=== PATIENT | female | born 1990 | race Caucasian/White ===

== ENCOUNTER 2016-08-22 14:46 | Emergency (ER) | payer OTHER ==
[~2016-08-22] VITALS: Ht 165.1 cm; Wt 57.7 kg
[2016-08-22 14:48] VITALS: BP 146/77; PULSE 103; RESP 24; TEMP 97.8; O2SAT 99
[2016-08-22 14:55] VITALS: BP 124/73; PULSE 90; RESP 20; O2SAT 98
[2016-08-22 15:05] VITALS: BP 124/73; PULSE 82; RESP 20; O2SAT 98
--- NOTE | 2016-08-22 15:11 | PD ---
HPI Chief Complaint: Chest Pain Time Seen by Provider: 15:05 Travel History International Travel<30 days: No Contact w/Intl Traveler<30days: No Traveled to known affect area: No History of Present Illness HPI 26-year-old female presents the emergency Department with 1 month history of intermittent chest pain which she describes as anterior and sharp intermittently. She denies fever, chills, nausea, vomiting, or diarrhea. Patient denies wheezing or productive cough. She has no upper respiratory symptoms patient does state a history of anxiety for which she was given buspirone several weeks ago without improvement. Patient states her pain does not seem to be worsening with exertion, but occasionally wakes her up at night in the past week. Nothing seems to make it better. Patient denies lower extremity edema or calf pain. Patient is on Depo-Provera, and due for her next shot on the . He does not have menstrual cycles due to this. Patient does state that she does have some urinary leakage in the last week. She denies vaginal symptoms or urinary burning. She is allergic to tramadol. PFSH Past Medical History ?: Not LMP: JULY 2016 Social History Alcohol Use: No Tobacco Use: No Substance Use: No Allergies-Medications (Allergen,Severity, Reaction): Coded Allergies: Tramadol (Verified Adverse Reaction, Severe, CHEST PAIN, 08/22/16) Reported Meds & Prescriptions Reported Meds & Active Scripts Active Vistaril (Hydroxyzine Pamoate) 50 Mg Cap 50 Mg PO QID PRN 30 Days Reported Risperdal (Risperidone) 1 Mg Tab 1 Mg PO HS Zoloft (Sertraline HCl) 100 Mg Tab 100 Mg PO HS Singulair (Montelukast Sodium) 10 Mg Tab 10 Mg PO DAILY Flonase Nasal Willis (Fluticasone Nasal Willis) 50 Mcg/Act Willis 1 Willis EACH NARE DAILY Buspirone (Buspirone HCl) 7.5 Mg Tab 7.5 Mg PO BID Medroxyprogesterone Inj 150 Mg/Ml Inj 150 Mg IM Q90D Aripiprazole 5 Mg Tab 5 Mg PO DAILY Review of Systems General / Constitutional: No: Fever Eyes: No: Visual changes HENT: No: Headaches Cardiovascular: Positive: Chest Pain or Discomfort Respiratory: No: Shortness of Breath Gastrointestinal: No: Abdominal Pain Genitourinary: No: Dysuria Musculoskeletal: No: Pain Skin: No Rash Neurologic: No: Weakness Psychiatric: No: Depression Endocrine: No: Polydipsia Hematologic/Lymphatic: No: Easy Bruising Physical Exam Narrative GENERAL: Patient appears mildly anxious but no acute distress otherwise. SKIN: Warm and dry. Normal color. Normal turgor. HEAD: Atraumatic. Normocephalic. EYES: Pupils equal and round. No scleral icterus. No injection or drainage. ENT: No nasal bleeding or discharge. Mucous membranes pink and moist. Pharynx is clear. NECK: Trachea midline. Neck is supple and nontender. CARDIOVASCULAR: Regular rate and rhythm. No murmurs gallops or rubs. RESPIRATORY: No accessory muscle use. Clear to auscultation. Breath sounds equal bilaterally. GASTROINTESTINAL: Abdomen soft, non-tender, nondistended. Hepatic and splenic margins not palpable. MUSCULOSKELETAL: Extremities without clubbing, cyanosis, or edema. No obvious deformities. NEUROLOGICAL: Awake and alert. No obvious cranial nerve deficits. Motor grossly within normal limits. Five out of 5 muscle strength in the arms and legs. Normal speech. PSYCHIATRIC: Appropriate mood and affect; insight and judgment normal. Data Data Last Documented VS Vital Signs Date Time Temp Pulse Resp B/P Pulse Ox O2 Delivery O2 Flow Rate FiO2 08/22/16 18:40 84 16 113/64 98 Room Air 08/22/16 14:48 97.8 Orders Ckmb (Isoenzyme) Profile (08/22/16 15:02) Complete Blood Count With Diff (08/22/16 15:02) Comprehensive Metabolic Panel (08/22/16 15:02) Magnesium (Mg) (08/22/16 15:02) Prothrombin Time / Inr (Pt) (08/22/16 15:02) Act Partial Throm Time (Ptt) (08/22/16 15:02) Troponin I (08/22/16 15:02) Ecg Monitoring (08/22/16 15:02) Bilateral Bp Monitoring (08/22/16 15:02) Iv Access Insert/Monitor (08/22/16 15:02) Oximetry (08/22/16 15:02) Oxygen Administration (08/22/16 15:02) Sodium Chloride 0.9% Flush (Ns Flush) (08/22/16 15:15) Ct Pulmonary Angiogram (08/22/16 15:02) Urinalysis - C+S If Indicated (08/22/16 15:02) Thyroid Stimulating Hormone (08/22/16 15:02) Ondansetron Inj (Zofran Inj) (08/22/16 17:00) Electrocardiogram (08/22/16 14:59) Iohexol 350 Inj (Omnipaque 350 Inj) (08/22/16 17:44) Labs Laboratory Tests Test 08/22/16 15:15 White Blood Count 12.6 TH/MM3 Red Blood Count 4.62 MIL/MM3 Hemoglobin 13.1 GM/DL Hematocrit 38.3 % Mean Corpuscular Volume 82.8 FL Mean Corpuscular Hemoglobin 28.4 PG Mean Corpuscular Hemoglobin 34.3 % Concent Red Cell Distribution Width 13.3 % Platelet Count 279 TH/MM3 Mean Platelet Volume 8.6 FL Neutrophils (%) (Auto) 58.3 % Lymphocytes (%) (Auto) 30.4 % Monocytes (%) (Auto) 10.1 % Eosinophils (%) (Auto) 0.8 % Basophils (%) (Auto) 0.4 % Neutrophils # (Auto) 7.3 TH/MM3 Lymphocytes # (Auto) 3.8 TH/MM3 Monocytes # (Auto) 1.3 TH/MM3 Eosinophils # (Auto) 0.1 TH/MM3 Basophils # (Auto) 0.0 TH/MM3 CBC Comment DIFF FINAL Differential Comment Prothrombin Time 11.3 SEC Prothromb Time International 1.0 RATIO Ratio Activated Partial 30.1 SEC Thromboplast Time Urine Color YELLOW Urine Turbidity CLEAR Urine pH 6.5 Urine Specific [place] 1.019 Urine Protein NEG mg/dL Urine Glucose (UA) NEG mg/dL Urine Ketones NEG mg/dL Urine Occult Blood TRACE Urine Nitrite NEG Urine Bilirubin NEG Urine Urobilinogen 2.0 MG/DL Urine Leukocyte Esterase NEG Urine RBC 1 /hpf Urine WBC 1 /hpf Urine Squamous Epithelial 1 /hpf Cells Urine Mucus FEW /lpf Microscopic Urinalysis Comment CULT NOT INDICATED Sodium Level 140 MEQ/L Potassium Level 3.9 MEQ/L Chloride Level 106 MEQ/L Carbon Dioxide Level 23.9 MEQ/L Anion Gap 10 MEQ/L Blood Urea Nitrogen 15 MG/DL Creatinine 0.68 MG/DL Estimat Glomerular Filtration 105 ML/MIN Rate Random Glucose 88 MG/DL Calcium Level 8.8 MG/DL Magnesium Level 2.3 MG/DL Total Bilirubin 0.8 MG/DL Aspartate Amino Transf 11 U/L (AST/SGOT) Alanine Aminotransferase 24 U/L (ALT/SGPT) Alkaline Phosphatase 96 U/L Total Creatine Kinase 86 U/L Troponin I LESS THAN 0.02 NG/ML Total Protein 8.2 GM/DL Albumin 3.8 GM/DL Thyroid Stimulating Hormone 1.160 uIU/ML 3rd Gen [facility] Medical Decision Making Medical Screen Exam Complete: Yes Emergency Medical Condition: Yes Differential Diagnosis Intermittent chest pain. Possible PE. Anxiety. Thyroid issue. Narrative Course Patient is medically stable at time of exam. EKG is performed showing sinus rhythm with nonspecific ST elevation. EKG reviewed . Labs ordered including CBC, CMP, TSH, and cardiac panel, and urinalysis. CTA of the chest is ordered. IV access is obtained. Labs are all within normal limits. Patient is given Zofran 4 mg IV as well as Vistaril [address] is negative for pulmonary embolus. Patient be discharged home with Vistaril 50 mg one 4 times a day when necessary #30. Patient should follow with her primary care physician or psychiatrist for further evaluation and treatment. Diagnosis Primary Impression: Atypical chest pain Additional Impression: Anxiety Referrals: Primary Care Physician Patient Instructions: General Instructions Additional Instructions: Labs are all within normal limits. Patient is given Zofran 4 mg IV as well as Vistaril [address] is negative for pulmonary embolus. Patient be discharged home with Vistaril 50 mg one 4 times a day when necessary #30. Patient should follow with her primary care physician or psychiatrist for further evaluation and treatment. Med/Other Pt SpecificInfo: Prescription(s) given Scripts Hydroxyzine Pamoate (Vistaril)50 Mg Cap50 Mg PO QID PRN (ANXIETY AND/OR INSOMNIA ) 30 Days Ref 0 Prov:Abdias Driscoll MD 08/22/16 Disposition: 01 DISCHARGE HOME Condition: Stable Tevin Eastman Aug 22, 2016 15:11
[2016-08-22] MEDS ORDERED: SODIUM CHLORIDE 0.9% FLUSH 5 ML FLUSH IVF PRN (15:15)
[2016-08-22 15:42] LABS: AUTOMATED NEUTROPHIL # 7.3 TH/MM3 (1.8-7.7); BASOPHIL % 0.4 % (0.0-2.0); EOSINOPHIL # 0.1 TH/MM3 (0-0.4); EOSINOPHIL % 0.8 % (0.0-4.0); HEMATOCRIT 38.3 % (35.0-46.0); HEMO FLAGS DIFF FINAL; LYMPH % 30.4 % (9.0-44.0); LYMPHOCYTE # 3.8 TH/MM3 (1.0-4.8); MEAN CELL VOLUME 82.8 FL (80.0-100.0); MEAN CORPUSCULAR HEMOGLOBIN 28.4 PG (27.0-34.0); MEAN CORPUSCULAR HGB CONC 34.3 % (32.0-36.0); MONO % 10.1 % (0.0-8.0); NEUT % 58.3 % (16.0-70.0); PLATELET COUNT 279 TH/MM3 (150-450); RED BLOOD COUNT 4.62 MIL/MM3 (4.00-5.30); RED CELL DISTRIBUTION WIDTH 13.3 % (11.6-17.2); WHITE BLOOD COUNT 12.6 TH/MM3 (4.0-11.0)
[2016-08-22] MEDS ORDERED: ZOLO100T PO (15:48)
[2016-08-22] MEDS ORDERED: MONT10TA2 PO (15:48)
[2016-08-22] MEDS ORDERED: ARIP1TAB11 PO (15:48)
[2016-08-22] MEDS ORDERED: BUSP1TAB PO (15:48)
[2016-08-22] MEDS ORDERED: RISP1 PO (15:48)
[2016-08-22] MEDS ORDERED: FLUT1SPR5 EACH NARE (15:48)
[2016-08-22] MEDS ORDERED: MEDR150I IM (15:48)
[2016-08-22 15:50] LABS: BLOOD, URINE TRACE (NEG); COMMENT (UR) CULT NOT INDICATED; CULTURE IF INDICATED CULT NOT INDICATED; GLUCOSE,URINE NEG (NEG); KETONE, URINE NEG (NEG); MUCUS URINE FEW /lpf (OCC); NITRITE,URINE NEG (NEG); PH, URINE 6.5 (5.0-8.5); SQUAMOUS EPITHELIAL CELL URINE 1 /hpf (0-5); URINE COLOR YELLOW (YELLW/STRAW)
[2016-08-22 15:57] LABS: APTT (PATIENT) 30.1 SEC (24.3-30.1); PROTHROMBIN TIME - PATIENT 11.3 SEC (9.8-11.6)
[2016-08-22 16:05] VITALS: BP 117/71; PULSE 77; RESP 16; O2SAT 98
[2016-08-22 16:17] LABS: ANION GAP 10 MEQ/L (5-15); AST (GOT) 11 U/L (15-37); BICARBONATE 23.9 MEQ/L (21.0-32.0); BLOOD UREA NITROGEN 15 MG/DL (7-18); CHLORIDE 106 MEQ/L (98-107); GLOMERULAR FILTRATION RATE 105 ML/MIN (>89); MAGNESIUM 2.3 MG/DL (1.5-2.5); POTASSIUM 3.9 MEQ/L (3.5-5.1); SODIUM (NA) 140 MEQ/L (136-145)
[2016-08-22 16:27] LABS: ALKALINE PHOSPHATASE 96 U/L (45-117); ALT (GPT) 24 U/L (10-53); TOTAL BILIRUBIN ADULT 0.8 MG/DL (0.2-1.0)
[2016-08-22 16:28] LABS: CREATINE KINASE 86 U/L (26-192)
[2016-08-22] MEDS ORDERED: ONDANSETRON HCL 4 MG/2 ML VIAL IV PUSH ONE (17:00)
[2016-08-22] MEDS ORDERED: IOHEXOL 350 MG/ML 10 ML VIAL (for RAD DIAG) IV ONE (17:44)
--- NOTE | 2016-08-22 17:56 | RADRPT ---
EXAM DATE/TIME: 08/22/2016 17:27 [facility] COMPARISON: No previous studies available for comparison. INDICATIONS : Intermittent chest pain for one month. IV CONTRAST: 60 cc Omnipaque 350 (iohexol) IV RADIATION DOSE: 8.00 CTDIvol (mGy) MEDICAL HISTORY : None SURGICAL HISTORY : None. ENCOUNTER: Initial ACUITY: 1 month PAIN SCALE: 6/10 LOCATION: Bilateral upper chest TECHNIQUE: Volumetric scanning of the chest was performed using a pulmonary embolism protocol MIP images were re constructed. Using automated exposure control and adjustment of the mA and/or kV according to patien t size, radiation dose was kept as low as reasonably achievable to obtain optimal diagnostic quality images. FINDINGS: PULMONARY ARTERIES: No filling defects are seen in the central pulmonary arteries. LUNGS: There is no consolidation or pneumothorax . No concerning pulmonary nodule is visualized. PLEURAE: There is no pleural thickening or pleural effusion. MEDIASTINUM: There is good visualization of the great vessels of the middle mediastinum. No evidence of mediastin al or hilar adenopathy/mass. MUSCULOSKELETAL: Within normal limits for patient age. MISCELLANEOUS: The visualized upper abdominal organs demonstrate no acute abnormality. CONCLUSION: 1. No pulmonary embolus. 2. No infiltrate. Rudy Lopes MD on August 22, 2016 at 17:53 Board Certified Radiologist. This report was verified electronically.
--- NOTE | 2016-08-22 18:04 | EKG ---
Date Performed: 08/22/2016 Time Performed: 14:59:13 PTAGE: 26 years EKG: Sinus rhythm POSSIBLE LEFT ATRIAL ENLARGEMENT NONSPECIFIC ST ELEVATION BORDERLINE ECG NO PREVIOUS TRACING DOCTOR: Raymond Torres Interpretating Date/Time 08/22/2016 18:02:39
[2016-08-22 18:40] VITALS: BP 113/64; PULSE 84; RESP 16; O2SAT 98
[2016-08-22] MEDS ORDERED: VIST50CA PO (18:46)
== END 2016-08-22 19:05 | disposition home or self-care (01) ==
LOC: NEPC 14:46
DX: R07.89 Other chest pain (principal); F41.9 Anxiety disorder, unspecified; R94.31 Abnormal electrocardiogram [ECG] [EKG]
CPT/HCPCS: 71275; 80053; 81001; 82550; 83735; 84443; 84484; 85025; 85610; 85730; 93005; 96374; 99285; J2405; Q9967

== ENCOUNTER 2016-11-07 09:08 | Emergency (ER) | payer OTHER ==
[~2016-11-07] VITALS: Ht 165.1 cm; Wt 72.0 kg
[~2016-11-07 09:08] MED LIST: ARIP1TAB11 PO; BUSP1TAB PO; FLUT1SPR5 EACH NARE; MEDR150I IM; MONT10TA2 PO; RISP1 PO; VIST50CA PO; ZOLO100T PO
[2016-11-07 09:09] VITALS: BP 132/64; PULSE 84; RESP 24; TEMP 98.7; O2SAT 96
[2016-11-07] MEDS ORDERED: MEDR150I IM (09:28)
--- NOTE | 2016-11-07 09:31 | PD ---
HPI Chief Complaint: GI Complaint Time Seen by Provider: 09:31 Travel History International Travel<30 days: No Contact w/Intl Traveler<30days: No Traveled to known affect area: No History of Present Illness HPI 26-year-old female came to the emergency room with history of right earache that has been going on for past 2 weeks. She says that she went to her primary care and was given antibiotic but she doesn't feel any better. Now she has been coughing and this morning she had a posttussive emesis. Vital signs were stable otherwise. She does not appear to be in any distress. [facility] Past Medical History Narrative Medical List of her past medical, surgical, social and family history was reviewed from the nursing note. Hx Anticoagulant Therapy: No Anxiety: Yes Cardiovascular Problems: No Chemotherapy: No Cerebrovascular Accident: No Diabetes: No Respiratory: No Influenza Vaccination: Yes ?: Unknown LMP: I am on Depo shot : 0 Para: 0 Miscarriage: 0 : 0 Past Surgical History Surgical History: No Previous Surgery Hysterectomy: No Social History Alcohol Use: No Tobacco Use: No Substance Use: No Allergies-Medications (Allergen,Severity, Reaction): Coded Allergies: Tramadol (Verified Adverse Reaction, Severe, CHEST PAIN, 11/07/16) Comments List of her allergies reviewed from the nursing note. Reported Meds & Prescriptions Reported Meds & Active Scripts Active Ciprodex Otic Drops (Ciprofloxacin-Dexamethasone Otic Drops) 0.3-0.1% Susp 4 Drop RIGHT EAR BID Reported Medroxyprogesterone Inj 150 Mg/Ml Inj 150 Mg IM Q90D Zoloft (Sertraline HCl) 100 Mg Tab 100 Mg PO HS Narrative Medication List of her home medications reviewed from the nursing note. Review of Systems Except as stated in HPI: all other systems reviewed are Neg Physical Exam Narrative GENERAL: Awake, alert, no obvious distress, mild MR SKIN: Focused skin assessment warm/dry. HEAD: Atraumatic. Normocephalic. EYES: Pupils equal and round. No scleral icterus. No injection or drainage. ENT: No nasal bleeding or discharge. Mucous membranes pink and moist. Right TM was not visualized since there was a foreign body in the ear canal. Left ear canal looked okay. Patient was tender once an otoscope was tried to be inserted. The right ear canal and TM was normal. The nostrils were WNL NECK: Trachea midline. No JVD. CARDIOVASCULAR: Regular rate and rhythm. No murmur appreciated. RESPIRATORY: No accessory muscle use. Clear to auscultation. Breath sounds equal bilaterally. GASTROINTESTINAL: Abdomen soft, non-tender, nondistended. Hepatic and splenic margins not palpable. MUSCULOSKELETAL: No obvious deformities. No clubbing. No cyanosis. No edema. NEUROLOGICAL: Awake and alert. No obvious cranial nerve deficits. Motor grossly within normal limits. Normal speech. PSYCHIATRIC: Appropriate mood and affect; insight and judgment normal. Data Data Last Documented VS Vital Signs Date Time Temp Pulse Resp B/P Pulse Ox O2 Delivery O2 Flow Rate FiO2 11/07/16 09:09 98.7 84 24 132/64 96 Room Air MDM Medical Decision Making Medical Screen Exam Complete: Yes Emergency Medical Condition: Yes Medical Record Reviewed: Yes Differential Diagnosis Otalgia, foreign body, otitis media Narrative Course 9:40 AM I pulled out a rubber tip of a microphone from her right ear canal. After looking at a patient's that she was listening to music 2 weeks ago and thinks it might have gotten lodged at that point. I'm confused how her primary care said she had ear infection and give antibiotics since the foreign body was very obvious. This was taken out by me. Please refer to my procedure note. Patient will be discharged home without any antibiotic since I believe that the source of her pain as well as a reactionary cough. I did look at her TM after the FB was taken out and it appeared dull and inflamed. I will DC her home on Ciprodex Otic eardrops. Procedures Procedure Narrative Foreign body taken out from the right ear canal. Alligator forceps was used and the foreign body came out intact. This was a white rubber head from an earplug. Patient tolerated the procedure well. No bleeding was noticed. Diagnosis Primary Impression: Otalgia of right ear Additional Impression: Foreign body in right ear Qualified Code: T16.1XXA - Foreign body in right ear, initial encounter Referrals: Primary Care Physician Additional Instructions: Please return to the ER if the condition worsens or any other new concerns. Otherwise follow-up with your primary care as needed. Med/Other Pt SpecificInfo: Prescription(s) given Scripts Ciprofloxacin-Dexamethasone Otic Drops (Ciprodex Otic Drops)0.3-0.1% Susp4 Drop RIGHT EAR BID #1 BOTTLE Ref 0 Prov:Francisco Geronimo MD 11/07/16 Disposition: 01 DISCHARGE HOME Condition: Stable Francisco Geronimo MD Nov 07, 2016 09:31
[2016-11-07] MEDS ORDERED: CIPR0.3S RIGHT EAR (09:53)
== END 2016-11-07 09:58 | disposition home or self-care (01) ==
LOC: NEPD 09:08
DX: H92.01 Otalgia, right ear (principal); T16.1XXA Foreign body in right ear, initial encounter; X58.XXXA Exposure to other specified factors, initial encounter
CPT/HCPCS: 69200

== ENCOUNTER 2016-12-15 08:54 | Observation (INO) | payer OTHER ==
[2016-12-15] VITALS (8 sets, daily range): BP systolic 135–143; BP diastolic 80–85; PULSE 66–91; RESP 18–20; TEMP 95.8–99.3; O2SAT 95–100
[~2016-12-15] VITALS: Ht 165.1 cm; Wt 75.8 kg
[~2016-12-15 08:54] MED LIST changes: -ARIP1TAB11 PO; -BUSP1TAB PO; +CIPR0.3S RIGHT EAR; -FLUT1SPR5 EACH NARE; -MONT10TA2 PO; -RISP1 PO; -VIST50CA PO
[2016-12-15] MEDS ORDERED: CHLORHEXIDINE GLUCONATE 2 % 1 PACK (2 CLOTHS) TOPICAL PRN (10:00)
[2016-12-15] MEDS ORDERED: LACTATED RINGER'S 1000 ML IV PRN (10:00)
[2016-12-15] MEDS ORDERED: METOPROLOL TARTRATE 25 MG TAB PO PRN (10:00)
[2016-12-15] MEDS ORDERED: INSULIN HUMAN REGULAR 1,000 UNITS/10 ML VIAL SQ PRN (10:00)
[2016-12-15] MEDS ORDERED: POVIDONE IODINE 5% (ANTISEPSIS KIT) 4 APPLICATIONS EACH NARE PRN (10:00)
[2016-12-15] MEDS ORDERED: SODIUM CHLORID 0.9% 500 ML IV PRN (10:00)
[2016-12-15] MEDS ORDERED: MIDAZOLAM HCL 2 MG/2 ML VIAL ONE (10:06)
[2016-12-15] MEDS ORDERED: FAMOTIDINE 20 MG/2 ML VIAL ONE (10:07)
[2016-12-15] MEDS: AMPICILLIN/SULBAC 3 GM/NS 100 ML IV SCH ×8 (10:55→17:51)
[2016-12-15] MEDS ORDERED: LIDOCAINE 1%/EPINEPHrine 1:100,000 SOLN 30 ML VIAL ONE (11:53)
[2016-12-15] MEDS ORDERED: OXYMETAZOLINE HCL 0.05% 15 ML NASAL SPRAY ONE (11:53)
[2016-12-15] MEDS ORDERED: BACITRACIN TOP OINT 15 GM TUBE ONE (11:53)
[2016-12-15] MEDS ORDERED: ONDANSETRON HCL 4 MG/2 ML VIAL IV PUSH ONE (12:00)
[2016-12-15] MEDS ORDERED: PROPOFOL 200 MG/20 ML AMP IV ONE (12:00)
[2016-12-15] MEDS ORDERED: NEOSTIGMINE 3 MG/3 ML SYR IV ONE (12:00)
[2016-12-15] MEDS ORDERED: fentaNYL CITRATE 250 MCG/5 ML AMP ONE (13:09)
[2016-12-15] MEDS ORDERED: *Lactated Ringer's INJ 1,000 ML ONE (13:20)
[2016-12-15] MEDS ORDERED: *PROMETHAZINE 25 MG/ML VIAL PERIprocedural use ONLY ONE (13:47)
[2016-12-15] MEDS: LACTATED RINGER'S 1000 ML INJ 1,000 ML IV SCH (14:00)
[2016-12-15] MEDS ORDERED: AMPICILLIN/SULBAC 3 GM/NS 100 ML IV SCH ×2 (14:00)
[2016-12-15] MEDS ORDERED: ONDANSETRON HCL 4 MG/2 ML VIAL IV PRN (14:00)
[2016-12-15] MEDS ORDERED: LORazepam 2 MG/ML VIAL IV PRN (14:00)
[2016-12-15] MEDS: ACETAMINOPHEN 325MG/HYDROcodone 7.5MG/15ML UDC PO PRN ×2 (15:56→20:11)
[2016-12-16] VITALS: BP 139/79; PULSE 85; RESP 18; TEMP 96.5; O2SAT 95
[2016-12-16] MEDS: LACTATED RINGER'S 1000 ML INJ 1,000 ML IV SCH (00:11)
[2016-12-16] MEDS: AMPICILLIN/SULBAC 3 GM/NS 100 ML IV SCH ×2 (02:39)
[2016-12-16] MEDS: ACETAMINOPHEN 325MG/HYDROcodone 7.5MG/15ML UDC PO PRN (02:40)
[2016-12-16 04:00] VITALS: BP 141/90; PULSE 89; RESP 18; TEMP 97.9; O2SAT 97
[2016-12-16 07:15] VITALS: O2SAT 98
[2016-12-16 08:00] VITALS: BP 147/96; PULSE 92; RESP 19; TEMP 97.8; O2SAT 99
--- NOTE | 2017-01-14 07:52 | MP ---
cc: NELSY LÓPEZ M.D. DATE OF SURGERY 12/16/[address] Nelsy lópez PREOPERATIVE DIAGNOSIS 1. Adenotonsillar hypertrophy 2. Chronic tonsillitis 3. Nasal airway obstruction 4. Nasal septal deviation 5. Hypertrophy of inferior turbinates. POSTOPERATIVE DIAGNOSIS 1. Adenotonsillar hypertrophy 2. Chronic tonsillitis 3. Nasal airway obstruction 4. Nasal septal deviation 5. Hypertrophy of inferior turbinates. OPERATION PERFORMED 1. Adenotonsillectomy 2. Open repair of nasal septal fracture. 3. Bilateral submucosal resection of inferior turbinates INDICATIONS Documented in the history and physical. DESCRIPTION OF OPERATION The patient was taken to OR #8 and placed in the supine position. Following induction of general anesthesia and intubation, the nose was packed bilaterally with cotton pledgets saturated in 0.05% Oxymetazoline. The nasal septum and inferior turbinates were injected with 7 mL of 1% Xylocaine with epinephrine 1:100,000. She was then prepped and draped for surgery. The packing was removed and a hemitransfixion incision was made in the left nasal vestibule. Through this incision, the mucosa of the septum was elevated bilaterally as far as the junction of the bony and cartilaginous septum. This exposed the quadrangular cartilage which showed evidence of old long healed cartilaginous fracture with numerous points and spurs and lines of angulation obstructing the airway. A cumulative area of 2 x 2 cm was removed preserving 1.5 cm dorsal and caudal cartilaginous struts. When this was completed, the mucosa was then elevated from the remainder of the bony septum and the maxillary crest and these were removed using Dionte-Taryn forceps and a 6-mm [place] chisel. The incision was then closed with a running suture of 4-0 chromic and the mucosal layers of septum prop were approximated to each other with a quilting stitch of 4-0 plain gut. The inferior turbinates were addressed next. They were fractured out medially and a stab incisions were made along their inferior surfaces. Through these incisions, the submucosal soft tissue was reduced using a curette and preserving the conchal bone. The incision was then cauterized using the suction Bovie at 40 tan. The remnants of the inferior turbinates were then relateralized to the lateral nasal wall. The nose was then packed with Merocel tampons coated in bacitracin ointment. The table was turned 90 degrees and a shoulder roll and a McIvor mouth gag were put in place. The tonsils were removed using ArthroCare Coblator technique. A few sites of venous bleeding were cauterized on both sides using the bipolar cautery. When this was done, the adenoids were removed using the suction Bovie at 45 tan. The stomach was aspirated of several cc's of bilious gastric contents using a #18 Cal[place] sump NG tube and when this was completed, the mouth gag was removed and the procedure was terminated. The patient was reversed from anesthesia and taken to recovery in good condition. There were no complications. Blood loss was 60 mL. MD BJORN Bob/LINDA /7:16 AM /7:41 AM
[2017-03-06] MEDS ORDERED: medroxyPROGESTERone ACETATE SUSP 150 MG/ML SYRINGE IM SCH (09:00)
== END 2016-12-16 09:13 | disposition home or self-care (01) ==
LOC: PHSDC 08:54 → PH3A 13:55 → PH3B 14:54
PROVIDERS: ADMIT Otolaryngology; ATTEND Otolaryngology
DX: J34.2 Deviated nasal septum (principal); J35.03 Chronic tonsillitis and adenoiditis; J32.9 Chronic sinusitis, unspecified; J34.3 Hypertrophy of nasal turbinates; J98.8 Other specified respiratory disorders; S02.2XXS Fracture of nasal bones, sequela
CPT/HCPCS: 00160; 00170; 21335; 30140; 42821; 88304; 94762; G0378; J0295; J2250; J2405; J2550; J2710; J3010; J7120; 94760